=== PATIENT | female | born 1955 | race African-American/Black ===

== ENCOUNTER 2018-05-27 15:09 | Emergency (ER) | payer OTHER ==
[2018-05-27 15:16] VITALS: BP 181/109; PULSE 92; TEMP 98.7; BMI 40.4
--- NOTE | 2018-05-27 15:19 | PDOC ---
Rapid Medical Evaluation Chief Complaint: Pain, Acute Time Seen by Provider: 05/27/18 15:16 Medical Evaluation: 05/27/18 15:16 I have performed a brief in-person evaluation of this patient. The patient presents with a chief complaint of: Pain and swelling around nail bed of right middle finger s/p hitting finger on a kitchen table 5 ddays ago Pertinent physical exam findings: moderate swelling around nail bed of right middle finger with moderate pain and mild discoloration to skin. elevated blood pressure in triage I have ordered the following: nothing The patient will proceed to the ED for further evaluation. 05/27/18 15:19 Discharge Disposition - Diagnosis Paronychia of right middle finger - Discharge Dispostion Condition at time of disposition: Stable - Referrals - Patient Instructions - Post Discharge Activity
[2018-05-27] MEDS ORDERED: IBUPROFEN 600 MG TABLET (FP) PO ONE (16:51)
--- NOTE | 2018-05-27 16:59 | PDOC ---
History of Present Illness - General Chief Complaint: Pain, Acute Stated Complaint: RT FINGER INJURY Time Seen by Provider: 05/27/18 15:16 - History of Present Illness Initial Comments: 05/27/18 16:59 CHIEF COMPLAINT: Finger pain HISTORY OF PRESENT ILLNESS: This is an otherwise healthy 63-year-old female presents for evaluation of right third finger pain. Patient reports that she hit her finger on a kitchen counter about 5 days ago and has had worsening swelling and pain since. She denies fevers/chills or any other systemic symptoms. Vital signs on arrival are notable for blood pressure 181/109. REVIEW OF SYSTEMS: GENERAL/CONSTITUTIONAL: No fever or chills. No weakness. No weight change. MUSCULOSKELETAL:See HPI. SKIN: No rash or easy bruising. NEUROLOGIC: No headache, vertigo, loss of consciousness, or loss of sensation. PSYCHIATRIC: No depression or anxiety. ENDOCRINE: No increased thirst. No abnormal weight change. HEMATOLOGIC/LYMPHATIC: No anemia, easy bleeding, or history of blood clots. ALLERGIC/IMMUNOLOGIC: No hives or skin allergy. No latex allergy. PHYSICAL EXAM: GENERAL: The patient is awake, alert, and fully oriented, in no acute distress. EXTREMITIES: Right 3rd finger paronychia, no surrounding cellulitis. NEUROLOGICAL: Normal speech, normal gait. CN II-XII grossly intact. PSYCH: Normal mood, normal affect. SKIN: Warm, dry, normal turgor, no rashes or lesions noted. Past History - Past Medical History Allergies/Adverse Reactions: Allergies Allergy/AdvReac Type Severity Reaction Status Date / Time No Known Allergies Allergy Verified 05/27/18 16:55 Home Medications: Ambulatory Orders Ibuprofen 600 mg PO Q6H PRN #20 tablet 05/27/18 - Suicide/Smoking/Psychosocial Hx Smoking History: Never smoked Have you smoked in the past 12 months: No Information on smoking cessation initiated: No Hx Alcohol Use: No Drug/Substance Use Hx: No *Physical Exam - Vital Signs Last Vital Signs Temp Pulse Resp BP Pulse Ox 98.7 F 92 H 20 181/109 H 99 05/27/18 15:11 05/27/18 15:11 05/27/18 15:11 05/27/18 15:11 05/27/18 15:11 Moderate Sedation - Procedure Monitoring Vital Signs: Procedure Monitoring Vital Signs Temperature 98.7 F 05/27/18 15:11 Pulse Rate 92 H 05/27/18 15:11 Respiratory Rate 20 05/27/18 15:11 Blood Pressure 181/109 H 05/27/18 15:11 O2 Sat by Pulse Oximetry (%) 99 05/27/18 15:11 Medical Decision Making - Medical Decision Making 05/27/18 17:07 A/P: 63-year-old female with paronychia. No surrounding cellulitis or systemic symptoms. No diabetes or other immune compromise. -Ibuprofen 600 mg for pain -Incision and drainage -Follow-up instructions, home care, and return precautions reviewed Repeat blood pressure is 180/116. Discussed at length with patient and she believes she will be able to follow up with PCP about this within the next few days. She appreciates the importance of doing so. *DC/Admit/Observation/Transfer Diagnosis at time of Disposition: Paronychia of right middle finger - Discharge Dispostion Condition at time of disposition: Stable - Prescriptions Prescriptions: Ibuprofen 600 mg PO Q6H PRN #20 tablet PRN Reason: Pain - Referrals Referrals: Tyrone Pate MD [Primary Care Provider] - - Patient Instructions Printed Discharge Instructions: DI for Paronychia Additional Instructions: Soaked your finger in warm water for 15 minutes 4-5 times a day Take ibuprofen as prescribed if needed for pain Follow-up with doctor in not be next week Return here for fever, redness or warmth of the finger, or any other concerning symptoms PLEASE FOLLOW UP WITH YOUR PRIMARY DOCTOR SOON POSSIBLE REGARDING YOUR BLOOD PRESSURE, WHICH IS ELEVATED TODAY. - Post Discharge Activity
== END 2018-05-27 17:20 | disposition home or self-care (01) ==
LOC: JERFT 15:09
PROC: 0J9J0ZZ Drainage of Right Hand Subcutaneous Tissue and Fascia, Open Approach (ICD-10-PCS; principal; 2018-05-27)
DX: L03.011 Cellulitis of right finger (principal); W22.8XXA Striking against or struck by other objects, initial encounter; Y93.89 Activity, other specified; Y92.89 Other specified places as the place of occurrence of the external cause; Y99.8 Other external cause status; I10 Essential (primary) hypertension
CPT/HCPCS: 87070; 87186; 87205; 99281-25